=== PATIENT | female | born 1990 ===

== ENCOUNTER 2020-07-04 04:23 | Inpatient (IN) | payer BC, OTHER ==
[2020-07-04] MEDS ORDERED: Sodium Chloride 0.9% 2.5 ML Syringe FLUSH PRN (05:49)
[2020-07-04] MEDS ORDERED: Nalbuphine 10 MG/1 ML Vial IVPUSH PRN (05:49)
[2020-07-04] MEDS ORDERED: Butorphanol 1 MG/ML SDV IVPUSH PRN (05:49)
[2020-07-04] MEDS ORDERED: Tranexamic Acid 1,000 MG in Sodium Chloride 0.9% 100 ML IV PRN (05:49)
[2020-07-04] MEDS ORDERED: Lidocaine 1% 50 ML MDV INJECT PRN (05:49)
[2020-07-04] MEDS ORDERED: Carboprost Tromethamine 250 MCG/1 ML Amp IM PRN (05:49)
[2020-07-04] MEDS ORDERED: Sodium Chloride 0.9% 10 ML Syringe FLUSH PRN (05:49)
[2020-07-04] MEDS ORDERED: Water For Irrigation,Sterile 1,000 ML Container IRR PRN (05:49)
[2020-07-04] MEDS ORDERED: Misoprostol 200 MCG Tab PO PRN (05:49)
[2020-07-04] MEDS ORDERED: Sodium Chloride 0.9% 10 ML SDV IV PRN (05:49)
[2020-07-04] MEDS ORDERED: Methylergonovine 0.2 MG/1 ML Amp IM PRN (05:49)
[2020-07-04] MEDS ORDERED: Oxytocin/0.9 % Sodium Chloride 30 UNIT/500 ML BAG IV SCH (06:00)
[2020-07-04] MEDS ORDERED: Ropivacaine HCl/PF 100 ML ONE (06:00)
[2020-07-04] MEDS ORDERED: Lactated Ringers 1,000 ML IV SCH (06:00)
[2020-07-04] MEDS ORDERED: fentaNYL 100 MCG/2 ML SDV ONE (06:00)
--- NOTE | 2020-07-04 06:17 | PCM.PREANE ---
Preanesthetic Assessment - Anesthesia/Transfusion/Family Hx Anesthesia History: Prior Anesthesia Without Reaction Family History of Anesthesia Reaction: No - Physical Assessment NPO Status Date: 07/04/20 NPO Status Time: 00:05 Height: 1.63 m Weight: 79.379 kg ASA Class: 2 - Lab Values: Laboratory Last Values WBC 11.25 K/uL (4.0-11.0) H 07/04/20 05:40 RBC 4.09 M/uL (4.30-5.90) L 07/04/20 05:40 Hgb 12.2 g/dL (12.0-16.0) 07/04/20 05:40 Hct 36.5 % (36.0-46.0) 07/04/20 05:40 MCV 89.2 fL (80.0-98.0) 07/04/20 05:40 MCH 29.8 pg (27.0-32.0) 07/04/20 05:40 MCHC 33.4 g/dL (31.0-37.0) 07/04/20 05:40 RDW Std Deviation 42.1 fl (28.0-62.0) 07/04/20 05:40 RDW Coeff of Nii 13 % (11.0-15.0) 07/04/20 05:40 Plt Count 384 K/uL (150-400) 07/04/20 05:40 MPV 10.40 fL (7.40-12.00) 07/04/20 05:40 Nucleated RBC % 0.0 /100WBC 07/04/20 05:40 Nucleated RBCs # 0 K/uL 07/04/20 05:40 - Allergies Allergies/Adverse Reactions: Allergies Allergy/AdvReac Type Severity Reaction Status Date / Time No Known Allergies Allergy Verified 07/04/20 05:48 - Acknowledgements Anesthesia Type Planned: Epidural Pt an Appropriate Candidate for the Planned Anesthesia: Yes Alternatives and Risks of Anesthesia Discussed w Pt/Guardian: Yes Pt/Guardian Understands and Agrees with Anesthesia Plan: Yes PreAnesthesia Questionnaire - CURRENT (IN HOUSE) MEDS Current Meds: Current Medications Butorphanol Tartrate (Stadol) 1 mg IVPUSH Q1H PRN PRN Reason: Pain Carboprost Tromethamine (Hemabate Ds) 250 mcg IM ASDIRECTED PRN PRN Reason: Post Hemorrhage Oxytocin/Sodium Chloride (Oxytocin 30 Unit/500 Ml-Ns) 30 unit in 500 mls @ 500 mls/hr IV TITRATE [facility] Tranexamic Acid 1,000 mg/ (Sodium Chloride) 110 mls @ 660 mls/hr IV ONETIME PRN PRN Reason: Bleeding Lactated Ringer's (Ringers, Lactated) 1,000 mls @ 150 mls/hr IV ASDIRECTED [facility] Lidocaine HCl (Xylocaine 1%) 50 ml INJECT ONETIME PRN PRN Reason: Laceration repair Methylergonovine Maleate (Methergine) 0.2 mg IM ASDIRECTED PRN PRN Reason: Post Hemorrhage Misoprostol (Cytotec) 200 mcg PO ONETIME PRN PRN Reason: Post Hemorrhage Nalbuphine HCl (Nubain) 10 mg IVPUSH Q1H PRN PRN Reason: Pain (severe 7-10) Sodium Chloride (Saline Flush) 10 ml FLUSH ASDIRECTED PRN PRN Reason: Keep Vein Open Sodium Chloride (Saline Flush) 2.5 ml FLUSH ASDIRECTED PRN PRN Reason: Keep Vein Open Sodium Chloride (Normal Saline) 10 ml IV ASDIRECTED PRN PRN Reason: IV Use Sterile Water (Sterile Water For Irrigation) 1,000 ml IRR ASDIRECTED PRN PRN Reason: delivery Discontinued Medications Fentanyl (Sublimaze) Confirm Administered Dose 100 mcg .ROUTE .STK-MED ONE Stop: 07/04/20 06:01 Ropivacaine (Naropin 0.2%) Confirm Administered Dose 100 mls @ as directed .ROUTE .STK-MED ONE Stop: 07/04/20 06:01
--- NOTE | 2020-07-04 06:18 | PCM.LDHP ---
L&D History of Present Illness - General Date of Service: 07/04/20 Admit Problem/Dx: Patient Status Order with Admit Dx/Problem 07/04/20 05:49 Patient Status [ADT] Routine Admission Diagnosis/Problem Admission Diagnosis/Problem Source of Information: Patient History Limitations: Reports: No Limitations - History of Present Illness Improves with: Reports: None Worsens with: Reports: None Associated Symptoms: Reports: N - Related Data Allergies/Adverse Reactions: Allergies Allergy/AdvReac Type Severity Reaction Status Date / Time No Known Allergies Allergy Verified 07/04/20 05:48 H&P Review of Systems - Review of Systems: Review Of Systems: See Below General: Reports: No Symptoms HEENT: Reports: No Symptoms Pulmonary: Reports: No Symptoms Cardiovascular: Reports: No Symptoms Gastrointestinal: Reports: No Symptoms Genitourinary: Reports: No Symptoms Musculoskeletal: Reports: No Symptoms Skin: Reports: No Symptoms Psychiatric: Reports: No Symptoms Neurological: Reports: No Symptoms Hematologic/Lymphatic: Reports: No Symptoms Immunologic: Reports: No Symptoms L&D Exam - Exam Exam: See Below - Vital Signs Weight: 79.379 kg - OB Specific Contraction Intensity: Mild to Moderate - Camacho Score Camacho Score Cervix Position: Anterior Camacho Score Consistency: Soft Camacho Score Dilation: 3-4 cm - Exam General: Alert, Oriented HEENT: PERRLA, Conjunctiva Clear, EACs Clear, EOMI, Hearing Intact, Mucosa Moist & [place], Nares Patent, Normal Nasal Septum, Posterior Pharynx Clear, TMs Clear Neck: Supple, Trachea Midline Lungs: Clear to Auscultation, Normal Respiratory Effort Cardiovascular: Regular Rate, Regular Rhythm GI/Abdominal Exam: Normal Bowel Sounds, Soft, Non-Tender, No Organomegaly, No Distention, No Abnormal Bruit, No Mass, Pelvis Stable Rectal Exam: Normal Exam, Normal Rectal Tone Genitourinary: Normal external exam, Normal bimanual exam, Normal speculum exam Back Exam: Normal Inspection, Full Range of Motion Extremities: Normal Inspection, Normal Range of Motion, Non-Tender, No Pedal Edema, Normal Capillary Refill Skin: Warm, Dry, Intact Neurological: Cranial Nerves Intact, Reflexes Equal Bilateral Psychiatric: Alert, Normal Affect, Normal Mood - Patient Data Lab Results Last 24 hrs: Laboratory Results - last 24 hr 07/04/20 Range/Units 05:40 WBC 11.25 H (4.0-11.0) K/uL RBC 4.09 L (4.30-5.90) M/uL Hgb 12.2 (12.0-16.0) g/dL Hct 36.5 (36.0-46.0) % MCV 89.2 (80.0-98.0) fL MCH 29.8 (27.0-32.0) pg MCHC 33.4 (31.0-37.0) g/dL RDW Std Deviation 42.1 (28.0-62.0) fl RDW Coeff of Nii 13 (11.0-15.0) % Plt Count 384 (150-400) K/uL MPV 10.40 (7.40-12.00) fL Nucleated RBC % 0.0 /100WBC Nucleated RBCs # 0 K/uL Result Diagrams: 07/04/20 05:40 Problem List Initiated/Reviewed/Updated: Yes Orders Last 24hrs: Active Orders 24 hr Category Date Time Status Patient Status [ADT] Routine ADT 07/04/20 05:49 Active Heart Tones [RC] CONTINUOUS Care 07/04/20 05:49 Active Non Stress Test [RC] PER UNIT ROUTINE Care 07/04/20 05:49 Active May Shower [RC] ASDIRECTED Care 07/04/20 05:49 Active Notify Provider [RC] PRN Care 07/04/20 05:49 Active Up ad Comfort [RC] ASDIRECTED Care 07/04/20 05:49 Active Vaginal Exam [RC] PRN Care 07/04/20 05:49 Active Vital Signs [RC] PER UNIT ROUTINE Care 07/04/20 05:49 Active CORONAVIRUS COVID-19 JASEN [MOLEC] Routine Lab 07/04/20 05:30 Received RPR (SYPHILIS SERO) W/ RFLX [REF] Routine Lab 07/04/20 05:40 Received TYPE AND SCREEN [BBK] Routine Lab 07/04/20 05:40 Ordered Butorphanol [Stadol] Med 07/04/20 05:49 Active 1 mg IVPUSH Q1H PRN Carboprost Tromethamine [Hemabate DS] Med 07/04/20 05:49 Active 250 mcg IM ASDIRECTED PRN Lactated Ringers [Ringers, Lactated] 1,000 ml Med 07/04/20 06:00 Active IV ASDIRECTED Lidocaine 1% [Xylocaine 1%] Med 07/04/20 05:49 Active 50 ml INJECT ONETIME PRN Methylergonovine [Methergine] Med 07/04/20 05:49 Active 0.2 mg IM ASDIRECTED PRN Nalbuphine [Nubain] Med 07/04/20 05:49 Active 10 mg IVPUSH Q1H PRN Oxytocin/0.9 % Sodium Chloride [Oxytocin 30 Unit/500 ML Med 07/04/20 06:00 Active -NS] 30 unit in 500 ml IV TITRATE Sodium Chloride 0.9% [Normal Saline] Med 07/04/20 05:49 Active 10 ml IV ASDIRECTED PRN Sodium Chloride 0.9% [Saline Flush] Med 07/04/20 05:49 Active 10 ml FLUSH ASDIRECTED PRN Sodium Chloride 0.9% [Saline Flush] Med 07/04/20 05:49 Active 2.5 ml FLUSH ASDIRECTED PRN Tranexamic Acid [Cyklokapron] 1,000 mg Med 07/04/20 05:49 Active Sodium Chloride 0.9% [Normal Saline] 100 ml IV ONETIME Water For Irrigation,Sterile [Sterile Water for Med 07/04/20 05:49 Active Irrigation] 1,000 ml IRR ASDIRECTED PRN miSOPROStoL [Cytotec] Med 07/04/20 05:49 Active 200 mcg PO ONETIME PRN Scalp Electrode [WOMSER] Per Unit Routine Oth 07/04/20 05:49 Ordered Peripheral IV Insertion Adult [OM.PC] Routine Oth 07/04/20 05:49 Ordered Resuscitation Status Routine Resus Stat 07/04/20 05:49 Ordered Medication Orders Butorphanol Tartrate (Stadol) 1 mg IVPUSH Q1H PRN PRN Reason: Pain Carboprost Tromethamine (Hemabate Ds) 250 mcg IM ASDIRECTED PRN PRN Reason: Post Hemorrhage Oxytocin/Sodium Chloride (Oxytocin 30 Unit/500 Ml-Ns) 30 unit in 500 mls @ 500 mls/hr IV TITRATE [facility] Tranexamic Acid 1,000 mg/ (Sodium Chloride) 110 mls @ 660 mls/hr IV ONETIME PRN PRN Reason: Bleeding Lactated Ringer's (Ringers, Lactated) 1,000 mls @ 150 mls/hr IV ASDIRECTED [facility] Lidocaine HCl (Xylocaine 1%) 50 ml INJECT ONETIME PRN PRN Reason: Laceration repair Methylergonovine Maleate (Methergine) 0.2 mg IM ASDIRECTED PRN PRN Reason: Post Hemorrhage Misoprostol (Cytotec) 200 mcg PO ONETIME PRN PRN Reason: Post Hemorrhage Nalbuphine HCl (Nubain) 10 mg IVPUSH Q1H PRN PRN Reason: Pain (severe 7-10) Sodium Chloride (Saline Flush) 10 ml FLUSH ASDIRECTED PRN PRN Reason: Keep Vein Open Sodium Chloride (Saline Flush) 2.5 ml FLUSH ASDIRECTED PRN PRN Reason: Keep Vein Open Sodium Chloride (Normal Saline) 10 ml IV ASDIRECTED PRN PRN Reason: IV Use Sterile Water (Sterile Water For Irrigation) 1,000 ml IRR ASDIRECTED PRN PRN Reason: delivery Assessment/Plan Comment:: Term in active labor.
--- NOTE | 2020-07-04 06:21 | PCM.PRNOTE ---
- Free Text/Narrative Note: Anes Note Patient requests epidural for L&D. Sitting position, level L3-L4 midline approach. Sterile technique. Chloraprep scrub to lumbar area. Sterile fenestrated drape applied. Epidural space easily achieved single attempt using JASPREET technique. JASPREET a t3 cm. Cath threaded 5 cm with ease. Cath secured at skin using sterile clear adhesive dressing. Test 0603 3 cc 1.5% lido with epi negative. 0607 Load 10 cc 0.2% ropivicaine with 1 mcg cc fentanyl in slow divided doses. 0612 Pumps started with 90 cc same s olution. Rate is 8 cc hr with 6 cc q 20 min prn bolus. Nicole well. Time with patient [id number] David Stiles DIRECTOR OF [employer]
[2020-07-04] MEDS ORDERED: Witch Hazel Medicated Pads 40/Jar TOP PRN (11:35)
[2020-07-04] MEDS ORDERED: oxyCODONE 5 MG Tab PO PRN (11:35)
[2020-07-04] MEDS ORDERED: Benzocaine/Menthol 20%-0.5% Spray 78 GM Cannister TOP PRN (11:35)
[2020-07-04] MEDS ORDERED: Lanolin 100% Cream 7 GM Tube TOP PRN (11:35)
[2020-07-04] MEDS ORDERED: Bisacodyl 10 MG Supp RECTAL PRN (11:35)
[2020-07-04] MEDS ORDERED: Acetaminophen 500 MG Tab PO PRN (11:35)
[2020-07-04] MEDS ORDERED: Docusate Sodium 100 MG Cap PO PRN (11:35)
[2020-07-04] MEDS ORDERED: Ibuprofen 400 MG Tab PO PRN (11:35)
[2020-07-04] MEDS ORDERED: Ibuprofen 800 MG Tab PO PRN (11:35)
[2020-07-04] MEDS: Acetaminophen 500 MG Tab PO PRN (20:21)
[2020-07-05] MEDS: Acetaminophen 500 MG Tab PO PRN ×2 (04:07→08:33)
--- NOTE | 2020-07-05 07:18 | PCM48HPAN ---
Post Anesthesia Note - EVALUATION WITHIN 48HRS OF ANESTHETIC Vital Signs in Normal Range: Yes Patient Participated in Evaluation: Yes Respiratory Function Stable: Yes Airway Patent: Yes Cardiovascular Function Stable: Yes Hydration Status Stable: Yes Pain Control Satisfactory: Yes Nausea and Vomiting Control Satisfactory: Yes Mental Status Recovered: Yes Vital Signs: Last Vital Signs Temp 36.4 C 07/05/20 03:56 Pulse 79 07/05/20 03:56 Resp 16 07/05/20 03:56 BP 121/73 07/05/20 03:56 Pulse Ox 99 07/05/20 03:56
--- NOTE | 2020-07-05 13:15 | PCM.DCSUM1 ---
Discharge Summary - Hospital Course Free Text/Narrative:: Hermila is a 30 yo PPD1 S/P uncomplicated to term NBF. O pos, RI, GBS neg. Patient has no complaints or concerns at this time except recommendations with Pristiq 50 mg PO daily regimen. Discussed RBAs/SEs of with low-dose Pristiq therapy as she continued therapy throughout duration of due to refractory symptoms not alleviated with two other more preferred methods of therapy. We also discussed bottle-feeding to mitigate potential toxicity issues such as lethargy, difficulty feeding, and low weight gain, though the overall risk of toxicity is low with current dosage. Patient is bottle feeding well, resting comfortably in bed with in bassinet. Patient reports she is eating, voiding, ambulating independently and without difficulty. Patient denies any problems or concerns at this time except mild-moderate intermittent uterine cramping somewhat relieved with Tylenol. Patient reports moderate vaginal bleeding with few very small clots. Patient verbalizes her readiness to be discharged home today. Diagnosis: Stroke: No - Discharge Data Discharge Date: 07/05/20 Discharge Disposition: Home, Self-Care 01 Condition: Good - Referral to Home Health Primary Care Physician: PCP None - Discharge Diagnosis/Problem(s) (1) (spontaneous vaginal delivery) SNOMED Code(s): 962901885 ICD Code: O80 - ENCOUNTER FOR FULL-TERM UNCOMPLICATED DELIVERY Status: Acute Current Visit: Yes - Patient Instructions Diet: Usual Diet as Tolerated, Regular Diet as Tolerated, Drink 8-10+ Glasses/Day Activity: As Tolerated, No Strenuous Activities, Rest and Relax Today Driving: May Drive Today Showering/Bathing: May Shower Showering/Bathing, Other: Sitz baths for perineal comfort Notify Provider of: Fever, Increased Pain, Swelling and Redness, Drainage, Nausea and/or Vomiting - Discharge Plan *PRESCRIPTION DRUG MONITORING PROGRAM REVIEWED*: No *COPY OF PRESCRIPTION DRUG MONITORING REPORT IN PATIENT AAYUSH: No Prescriptions/Med Rec: Acetaminophen [Tylenol Extra Strength] 1,000 mg PO Q6H PRN #60 tablet PRN Reason: Pain Home Medications: Home Meds Acetaminophen [Tylenol Extra Strength] 1,000 mg PO Q6H PRN #60 tablet 07/05/20 [Rx] Oxygen Therapy Mode: Room Air Patient Handouts: Baby Blues, How to Take a Sitz Bath, Care After Vaginal Delivery Referrals: [facility] [Outside] Feliberto Naylor MD [Physician] - 08/16/20 9:30 am (Your post follow-up appointment is on 08/16/[address] Naylor at 9:30 am. Masks are required.) - Discharge Summary/Plan Comment DC Time >30 min.: No - General Info Date of Service: 07/05/20 Admission Dx/Problem (Free Text: Patient Status Order with Admit Dx/Problem 07/04/20 05:49 Patient Status [ADT] Routine Admission Diagnosis/Problem Admission Diagnosis/Problem Functional Status: Reports: Pain Controlled, Tolerating Diet, Ambulating, Urinating - Review of Systems General: Reports: No Symptoms HEENT: Reports: No Symptoms Pulmonary: Reports: No Symptoms Cardiovascular: Reports: No Symptoms Gastrointestinal: Reports: No Symptoms Genitourinary: Reports: No Symptoms Musculoskeletal: Reports: No Symptoms Skin: Reports: No Symptoms Neurological: Reports: No Symptoms Psychiatric: Reports: No Symptoms - Patient Data Vitals - Most Recent: Last Vital Signs Temp 97.1 F 07/05/20 07:30 Pulse 75 07/05/20 07:30 Resp 16 07/05/20 07:30 BP 98/69 07/05/20 07:30 Pulse Ox 98 07/05/20 07:30 Weight - Most Recent: 175 lb Lab Results - Last 24 hrs: Laboratory Results - last 24 hr 07/05/20 Range/Units 05:01 Hgb 10.1 L (12.0-16.0) g/dL Hct 30.6 L (36.0-46.0) % Med Orders - Current: Current Medications Acetaminophen (Tylenol Extra Strength) 500 mg PO Q4H PRN PRN Reason: Pain Acetaminophen (Tylenol Extra Strength) 1,000 mg PO Q4H PRN PRN Reason: Pain Last Admin: 07/05/20 08:33 Dose: 1,000 mg Documented by: Benzocaine/Menthol (Dermoplast Pain Relief 20%-0.5% [place]) 78 gm TOP ASDIRECTED PRN PRN Reason: Perineal Comfort Measure Bisacodyl (Dulcolax) 10 mg RECTAL ONETIME PRN PRN Reason: Constipation Butorphanol Tartrate (Stadol) 1 mg IVPUSH Q1H PRN PRN Reason: Pain Last Admin: 07/04/20 05:45 Dose: 1 mg Documented by: Carboprost Tromethamine (Hemabate Ds) 250 mcg IM ASDIRECTED PRN PRN Reason: Post Hemorrhage Docusate Sodium (Colace) 100 mg PO BID PRN PRN Reason: Constipation Last Admin: 07/04/20 23:17 Dose: 100 mg Documented by: Emollient Ointment (Lansinoh Hpa) 0 gm TOP ASDIRECTED PRN PRN Reason: Sore Nipples Oxytocin/Sodium Chloride (Oxytocin 30 Unit/500 Ml-Ns) 30 unit in 500 mls @ 500 mls/hr IV TITRATE [facility] Last Admin: 07/04/20 11:27 Dose: 500 mls/hr Documented by: Tranexamic Acid 1,000 mg/ (Sodium Chloride) 110 mls @ 660 mls/hr IV ONETIME PRN PRN Reason: Bleeding Lactated Ringer's (Ringers, Lactated) 1,000 mls @ 150 mls/hr IV ASDIRECTED JO[facility] Last Admin: 07/04/20 06:53 Dose: 150 mls/hr Documented by: Ibuprofen (Motrin) 400 mg PO Q4H PRN PRN Reason: Pain Ibuprofen (Motrin) 800 mg PO Q6H PRN PRN Reason: Pain Lidocaine HCl (Xylocaine 1%) 50 ml INJECT ONETIME PRN PRN Reason: Laceration repair Methylergonovine Maleate (Methergine) 0.2 mg IM ASDIRECTED PRN PRN Reason: Post Hemorrhage Misoprostol (Cytotec) 200 mcg PO ONETIME PRN PRN Reason: Post Hemorrhage Nalbuphine HCl (Nubain) 10 mg IVPUSH Q1H PRN PRN Reason: Pain (severe 7-10) Oxycodone HCl (Oxycodone) 5 mg PO Q2H PRN PRN Reason: Pain Sodium Chloride (Saline Flush) 10 ml FLUSH ASDIRECTED PRN PRN Reason: Keep Vein Open Sodium Chloride (Saline Flush) 2.5 ml FLUSH ASDIRECTED PRN PRN Reason: Keep Vein Open Sodium Chloride (Normal Saline) 10 ml IV ASDIRECTED PRN PRN Reason: IV Use Sterile Water (Sterile Water For Irrigation) 1,000 ml IRR ASDIRECTED PRN PRN Reason: delivery Stevie Posadas (Tucks) 1 pad TOP ASDIRECTED PRN PRN Reason: comfort care Discontinued Medications Fentanyl (Sublimaze) Confirm Administered Dose 100 mcg .ROUTE .STK-MED ONE Stop: 07/04/20 06:01 Ropivacaine (Naropin 0.2%) Confirm Administered Dose 100 mls @ as directed .ROUTE .STK-MED ONE Stop: 07/04/20 06:01 - Exam General: Reports: Alert, Oriented, Cooperative, No Acute Distress HEENT: Reports: Pupils Equal, Pupils Reactive, Mucous Membr. Moist/[place] Neck: Reports: Supple Lungs: Reports: Clear to Auscultation, Normal Respiratory Effort Cardiovascular: Reports: Regular Rate, Regular Rhythm GI/Abdominal Exam: Normal Bowel Sounds, Soft, Non-Tender, No Organomegaly, No Distention (Female) Exam: Enlarged Uterus ( uterus, firm U+2), Vaginal Bleeding (Moderate rubra lochia, no clots) Rectal (Female) Exam: Deferred Back Exam: Reports: Normal Inspection, Full Range of Motion Extremities: Normal Inspection, Normal Range of Motion, Non-Tender, No Pedal Edema, Normal Capillary Refill Skin: Reports: Warm, Dry, Intact Neurological: Reports: No New Focal Deficit Psy/Mental Status: Reports: Alert, Normal Affect, Normal Mood
--- NOTE | 2020-08-02 14:08 | OR ---
SURGEON: Feliberto Naylor MD DATE OF PROCEDURE: 07/04/2020 Ms. Ngo is admitted in active labor. She is term. She had no complication. She has progressed normally and accomplished normal spontaneous vaginal delivery without any complication. heart rate was category 1 through the entire process of labor and estimated blood loss of 300 to 350 mL. There was no complication in the labor and delivery. NORMA / SOY /[id number]
== END 2020-07-05 13:34 | disposition home or self-care (01) | DRG 560 ==
LOC: MW.OBCHECK 04:23 → MW.OB 04:25 → MW.OBCHECK 05:49 → OBSVTOIN 11:36 → MW.OB 16:08
PROVIDERS: ADMIT Obstetrics & Gynecology; ATTEND Obstetrics & Gynecology
PROC: 3E0R3BZ Introduction of Anesthetic Agent into Spinal Canal, Percutaneous Approach (ICD-10-PCS; principal; 2020-07-04)
PROC: 00HU33Z Insertion of Infusion Device into Spinal Canal, Percutaneous Approach (ICD-10-PCS; 2020-07-04)
PROC: 10E0XZZ Delivery of Products of Conception, External Approach (ICD-10-PCS; 2020-07-04)
DX: O80 Encounter for full-term uncomplicated delivery (principal); Z37.0 Single live birth; Z20.822 Contact with and (suspected) exposure to COVID-19; Z3A.00 Weeks of gestation of pregnancy not specified
CPT/HCPCS: 01967; 36415; 51702; 59025; 59409; 85014; 85018; 85027; 86592; 86850; 86900; 86901; A9270-GY; J0595; J2590; J7120; U0002

== ENCOUNTER 2023-05-21 14:31 | Emergency (ER) | payer OTHER ==
[2023-05-21] MEDS ORDERED: Sodium Chloride 0.9% 1,000 ML IV ONE (15:04)
[2023-05-21] MEDS ORDERED: Ondansetron 4 MG/2 ML SDV IVPUSH ONE (15:04)
[2023-05-21 15:14] LABS: BASOPHILS ABSOLUTE AUTO 0.05 K/uL (0.00-0.20); BASOPHILS PERCENT AUTO 0.5 % (0.0-1.0); EOSINOPHILS ABSOLUTE AUTO 0.26 K/uL (0.00-0.45); EOSINOPHILS PERCENT AUTO 2.7 % (0.0-6.0); HEMATOCRIT 41.6 % (37.0-47.0); HEMOGLOBIN 14.6 g/dL (12.0-16.0); IMMATURE GRAN ABSOLUTE AUTO 0.02 K/uL (0.00-0.05); IMMATURE GRAN PERCENT AUTO 0.2 % (0.0-0.4); LYMPHOCYTES ABSOLUTE AUTO 2.67 K/uL (1.00-4.80); MEAN CORPUSCULAR HEMOGLOBIN 30.7 pg (28.0-32.0); MEAN CORPUSCULAR HGB CONC 35.1 g/dL (32.0-36.0); MEAN CORPUSCULAR VOLUME 87.4 fL (83.0-99.0); MEAN PLATELET VOLUME 9.4 fL (9.4-12.3); MONOCYTES PERCENT AUTO 8.4 % (0.0-8.0); NEUTROPHILS ABSOLUTE AUTO 5.72 K/uL (1.80-7.70); NEUTROPHILS PERCENT AUTO 60.2 % (41.0-71.0); PLATELET COUNT,PLT 354 K/uL (150-400); RED BLOOD CELL COUNT 4.76 M/uL (4.10-5.30); WHITE BLOOD CELL COUNT,WBC 9.52 K/uL (3.9-11.3)
[2023-05-21 15:55] LABS: ALANINE AMINOTRANSFERASE,ALT 97 IU/L (14-63); ALBUMIN 3.8 g/dL (3.4-5.0); ALKALINE PHOSPHATASE 60 U/L (46-116); ASPARTATE AMNIOTRANSFERASE,AST 48 IU/L (15-37); BILIRUBIN TOTAL 0.3 mg/dL (0.2-1.0); BLOOD UREA NITROGEN,BUN 11 mg/dL (7.0-18.0); CALCIUM 9.5 mg/dL (8.5-10.1); CARBON DIOXIDE,CO2 28.7 mmol/L (21.0-32.0); CHLORIDE,CL 103 mmol/L (98-107); CREATININE 0.9 mg/dL (0.6-1.0); GLUCOSE RANDOM 95 mg/dL (74-106); POTASSIUM,K 4.4 mmol/L (3.5-5.1); PROTEIN TOTAL,TP 7.6 g/dL (6.4-8.2); SODIUM,NA 137 mmol/L (136-145)
[2023-05-21 15:56] LABS: ESTIMATED GFR 87 mL/min (>60)
[2023-05-21 16:00] LABS: APPEARANCE,URINE CLEAR; BILIRUBIN,URINE NEGATIVE (NEGATIVE); COLOR,URINE YELLOW; GLUCOSE,URINE NEGATIVE (NEGATIVE); KETONES,URINE NEGATIVE (NEGATIVE); LEUKOCYTE ESTERASE,URINE NEGATIVE (NEGATIVE); NITRITE,URINE NEGATIVE (NEGATIVE); OCCULT BLOOD,URINE LARGE (NEGATIVE); PROTEIN,URINE NEGATIVE (NEGATIVE); UROBILINOGEN,URINE 0.2 EU/dL (<2.0)
[2023-05-21 16:09] LABS: BACTERIA,URINE FEW (NEGATIVE); EPITHELIAL CELLS,URINE OCCASIONAL (NONE-FEW); RBC,URINE 25-40 (0-2/HPF); WBC,URINE 0-1 (0-5/HPF)
== END 2023-05-21 17:11 | disposition home or self-care (01) ==
LOC: MW.ED 14:31
DX: O20.0 Threatened abortion (principal); Z3A.01 Less than 8 weeks gestation of pregnancy
CPT/HCPCS: 36415; 76817; 80053; 81001; 84702; 85025; 86900; 86901; 96361; 96374; 99284; J2405; J7030